=== PATIENT | male | born 1965 | race Caucasian/White ===

== ENCOUNTER 2020-03-26 11:15 | Emergency (ER) | payer OTHER ==
[~2020-03-26] VITALS: Ht 162.6 cm; Wt 66.2 kg
[2020-03-26 11:37] VITALS: BP 148/76; Ht 162.6 cm; Wt 66.2 kg
== END 2020-03-26 13:04 | disposition home or self-care (01) ==
LOC: ED 11:15
DX: H60.91 Unspecified otitis externa, right ear (principal)